=== PATIENT | female | born 1970 | race Caucasian/White ===

== ENCOUNTER 2021-06-21 09:21 | Emergency (ER) | payer OTHER ==
[2021-06-21] MEDS ORDERED: traMADol HCl 50 MG TAB ONE (10:08)
[2021-06-21] MEDS ORDERED: Ketorolac Tromethamine 60 MG/2 ML VIAL ONE (10:08)
[2021-06-21] MEDS ORDERED: Lidocaine 1% PF 5 ML VIAL ONE (10:08)
[2021-06-21] MEDS ORDERED: cefTRIAXone\\ROCEPHIN 1 GM VIAL ONE (10:08)
== END 2021-06-21 10:21 | disposition home or self-care (01) ==
LOC: BURERS 09:21
DX: L03.211 Cellulitis of face (principal); K04.7 Periapical abscess without sinus; F17.210 Nicotine dependence, cigarettes, uncomplicated; Z79.899 Other long term (current) drug therapy
CPT/HCPCS: 96372; 99283; J0696; J1885